=== PATIENT | female | born 1965 | race Caucasian/White ===

== ENCOUNTER 2016-09-03 07:59 | Inpatient (IN) | payer SELFPAY ==
--- NOTE | 2016-09-03 08:28 | EDPRACDOC ---
ED Hypoglycemia - General Information Chief Complaint: Generalized Weakness Information Source: Patient Mode of Arrival:: Car Home Medications: Home Medications Buspirone HCl [Buspar] 10 mg PO TID 09/03/16 Duloxetine HCl [Cymbalta] 60 mg PO DAILY 09/03/16 Metformin HCl 500 mg PO DAILY #30 tab 09/03/16 Allergies/Adverse Reactions: Allergies Allergy/AdvReac Type Severity Reaction Status Date / Time No Known Allergies Allergy Verified 09/03/16 08:08 - Other History Other History: PT WITH HYPOGLYCEMIA, ALL WEEKEND. HAS HAD DIAGNOSIS FOR 2 YEARS. TOOK GLUCOSE TABS TODAY, HASN'T NEEDED GLUCOSE TABS FOR 2 YEARS. MILD HEADACHE. STARTED CYMBALTA AND BUSPAR ABOUT 1 MONTH AGO. PT LIVES WITH MOM. 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 GROUT PUMP OPERATOR YES Medications GROUT PUMP OPERATOR (Medication/ SUGAR TABLETS-0800 Dose/Time) ED Past Medical History - History Reviewed Yes Nurses notes reviewed and agree except as marked - Patient Medical History Psychological History: Denies: Depression Systemic History: Denies: Cancer Surgical History: Denies: Hysterectomy - Social Medical History Smoking Status: Heavy tobacco smoker (5 or more cigarettes/day or daily pipe/ cigar) EDM Review of Systems - Review of Systems ROS Negative Except as Marked: Yes All systems reviewed and were negative except as marked Constitutional: No Symptoms Reported Eyes: No Symptoms Reported Mouth: No Symptoms Reported Respiratory: No Symptoms Reported - Physical Exam Constitutional: Alert (Awake), No apparent distress Oriented to: Time, Person, Place Last recorded Vital Signs: Last Vital Signs Temp 97.4 F L 09/03/16 08:01 Pulse 71 09/03/16 08:01 Resp 18 09/03/16 08:01 BP 146/92 09/03/16 08:01 Pulse Ox 100 09/03/16 08:01 Oxygen Pulse Oxygen Saturation 100 O2 Device Oxygen Flow Rate Fraction of Inspired Oxygen ( FIO2) - HEENT Head: Normal ( normocephalic) Eye Exam: Normal (PERRL, EOMI, Sclera white) Oropharynx: Normal (Pharynx:Moist without exudate,Gums-no swelling) Nose: No Symptoms Reported (septum midline) Neck: Normal (FROM, trachea at midline) - Respiratory/Cardiovascular Respiratory: Normal - CTA (BBS clear to auscultation without adventitious sounds ) Cardiovascular: Normal (RRR without murmur, gallop or rub) - GI Auscultation: Normal (NABS) Palpation: Normal (Soft,No rebound or guarding, non distended) Tenderness: Non tender Ugarte's Sign: Negative - Musculoskeletal Back: Normal (Non-Tender) Extremities: Normal (Normal tone, Pulses 2+ No cyanosis or edema, FROM) - Integumentary Skin: Normal, Warm, Dry Lymphatics: Normal (no adenopathy) - Neurologic Memory Impaired: Normal Motor Function: Normal (Normal tone, Pulses 2+ No cyanosis or edema, FROM) Cranial Nerve: Normal (CN II-X11 intact sensation, strength 5/5) Cerebellar: Normal Mood Description: Normal Perception: Normal - Results 09/03/16 08:20 09/03/16 08:20 POC Capillary Glucose 46 MG/DL (70-99) L* 09/03/16 08:04 Lab Results 09/03/16 08:04 POC Capillary Glucose 46 L* - EKG EKG #1 EKG Time: 08:44 -: Yes EKG interpreted by me Rate: bpm: 58 Mcleod: Normal Rhythm: SB Block: None Hypertrophy: None ST: Normal Comments: NORMAL EKG - Additional Information 1000 D/W DR GIRON. SHE RECOMMENDS METFORMIN 500 MG DAILY. CHANGE DIET. REMOVE MUCH SUGAR POSSIBLE. INCREASE PROTEIN IN DIET, LOW CARBOHYDRATE Decision Time to Discharge: 11:06 - Departure Yes I personally saw and evaluated the patient. Disposition: Admit IP To This Hospital Condition: Stable Final Diagnosis: Hypoglycemia Instructions: Non-diabetic Hypoglycemia (ED) Education/Counseling Given To: Patient Education/Counseling Given Regarding: Diagnosis Referrals: None,No Provider [Primary Care Provider] - 1-2 days Prescriptions: Metformin HCl 500 mg PO DAILY #30 tab Additional Instructions: CHANGE DIET. REMOVE MUCH SUGAR POSSIBLE. INCREASE PROTEIN IN DIET, LOW CARBOHYDRATE Decision to Admit Time: 11:39 Decision to admit date: 09/03/16 Decision to admit: from ED - Physician Consulted Hospitalist Time Called: 11:39 Provider Called: Kaitlin Giron Time Patient Portal Concierge Returned Call: 11:39
[2016-09-03 08:29] LABS: MPV 8.4 fL (7.4-10.4)
[2016-09-03] MEDS ORDERED: DEXTROSE 25 GM/50 ML PFS IV ONE ×2 (08:30→11:37)
[2016-09-03] MEDS ORDERED: ONDANSETRON HCL 4 MG/2 ML VIAL IV ONE (08:30)
[2016-09-03 08:45] LABS: BLOOD UREA NITROGEN 16 MG/DL (7-17); CALCIUM 9.6 MG/DL (8.4-10.2); CALCULATED OSMOLALITY 270 MOs/Kg (270-290); CHLORIDE 102 mEq/L (98-107); SODIUM LEVEL 142 mEq/L (137-146); TOTAL PROTEIN 8.9 G/DL (6.3-8.2)
[2016-09-03 08:48] LABS: ALL NEG? NO
[2016-09-03 08:53] LABS: RBC/URINE 0-2 (0-5); WBC/URINE 0-2 (0-5)
[2016-09-03 08:55] LABS: CPK (TOTAL ONLY) 33 IU/L (30-134); GLUCOSE 30 MG/DL (70-99)
[2016-09-03 08:59] LABS: ETOH-MGDL < 10 mg/dL
[2016-09-03 09:00] LABS: LEUKOCYTES/URINE NEG (NEGATIVE); NITRITE/URINE NEG (NEGATIVE); URINE OCCULT BLOOD NEG (NEG/TRACE)
[2016-09-03 09:13] LABS: MDMA* NEG (NEGATIVE); METHAMPHETAMINES NEG (NEGATIVE); OXYCODONE NEG (NEGATIVE)
[2016-09-03] MEDS ORDERED: NS 1,000 ML IV ONE ×2 (09:40→11:56)
--- NOTE | 2016-09-03 10:31 | DIRPT ---
CLINICAL DATA: Hypoglycemia EXAM: PORTABLE CHEST - 1 VIEW COMPARISON: 03/02/2012 FINDINGS: The heart size and mediastinal contours are within normal limits. Both lungs are clear. The visualized skeletal structures are unremarkable. IMPRESSION: No active disease. Electronically Signed By: Kingsley Payne M.D. On: 09/03/2016 10:28
[2016-09-03] MEDS ORDERED: BENZONATATE 100 MG PERLES PO PRN (12:08)
[2016-09-03] MEDS ORDERED: TEMAZEPAM 15 MG CAP PO PRN (12:08)
[2016-09-03] MEDS ORDERED: ONDANSETRON HCL 4 MG/2 ML VIAL IV PRN (12:08)
[2016-09-03] MEDS ORDERED: METOCLOPRAMIDE 10 MG/2 ML VIAL IV PRN (12:08)
[2016-09-03] MEDS ORDERED: ACETAMINOPHEN 650 MG SUPP PR PRN (12:08)
[2016-09-03] MEDS ORDERED: SIMETHICONE 80 MG TAB PO PRN (12:08)
[2016-09-03] MEDS ORDERED: DOCUSATE-SENNA CONCENTRATE TAB PO PRN (12:08)
[2016-09-03] MEDS ORDERED: SODIUM CHLORIDE 0.9% 3 ML FLUSH FLUSH PRN (12:08)
[2016-09-03] MEDS ORDERED: D5W/NS 1,000 ML IV SCH (13:00)
--- NOTE | 2016-09-03 13:25 | HISTPHYS ---
- Chief Complaint LOW BLOOD SUGAR - History of Present Illness Debby Guardado is a 51 year old woman who suffers with a history of depression and anxiety. She has been off medication for it for about 1 1/2 years but recently had to resume it due to some traumatic events in her life. She has had several deaths close to her, a child, a brother, a father, and is also recently . She is taking Cymbalta and Buspar for this. She has no prior history of diabetes, nor is there any known history of diabetes in her family. She has developed severe recurrent episodes of hypoglycemia, with blood sugars down to 29-35. This occurred in the past also when she was on Cymbalta. She has never taken Buspar until just a few weeks ago. The Cymbalta was also resumed just about 3 weeks ago and she again began having difficulty with low blood sugars about 1-2 weeks ago. In the past, her doctor just told her to take sugar pills to treat this. She had a serum glucose of 46 when she presented to the ED today. After one ampule of D50W, it came up to 85 , but within 2 hours it had dropped to 30 again. She was retreated, but again after a few hours had recurrent hypoglycemia, so was referred for admission. She is afebrile, has no chest pain, cough, or cold symptoms. She denies dysuria. - Medical History Cardiac History: Reports: No Significant History, Syncope (with blood sugar of 27) Respiratory History: Reports: No Significant History. Denies: Cough GI/ History: Reports: No Significant History Musculoskeletal History: Reports: No Significant History Systemic History: Denies: Cancer, Diabetes Neurological History: Reports: No Significant History. Denies: Seizures, Epilepsy Psychological History: Reports: Depression, Anxiety. Denies: Alcoholism, Substance Use Disorder - Surgical History Denies: Hysterectomy (bilateral tubal ligation) - Medictions/Allergies Allergies No Known Allergies Allergy (Verified 09/03/16 08:08) Current Medication List: Reviewed Home Medications Buspirone HCl [Buspar] 10 mg PO TID 09/03/16 Duloxetine HCl [Cymbalta] 60 mg PO DAILY 09/03/16 Metformin HCl 500 mg PO DAILY #30 tab 09/03/16 - Family History Reports: Hypertension (MGM), Cancer (MGF), Cardiac Disorders (MGM,). Denies: Diabetes - Social History Travel Outside of [place] in the Last 3 Months?: No Lives: Alone Smoking Status: Heavy tobacco smoker (5 or more cigarettes/day or daily pipe/ cigar) Social History: Denies: Alcohol Use, Substance Use Disorder - Review of Systems Constitutional: Fatigue, Weakness. negative: Chills, Fever Eyes: No Symptoms Reported, Blurred Vision Ears: No Symptoms Reported Nose: No Symptoms Reported Mouth: No Symptoms Reported Throat/Neck: No Symptoms Reported Respiratory: No Symptoms Reported. negative: Cough, Shortness of Breath, Wheezing Cardiovascular: Palpitations, Syncope. negative: Chest Pain Gastrointestinal: Nausea. negative: Vomiting, Abdominal Pain, Diarrhea, Constipation, Melena Genitourinary: No Symptoms Reported, Postmenopause Neurological: Dizziness, Headache, Weakness, Tremors, Changes in Orientation Musculoskeletal:: No Symptoms Reported, Weakness Integumentary: Other (diaphoresis) Allergic/Immunologic: No Symptoms Reported Hematologic: Anemia Endocrine: negative: Excessive Hunger, Polyuria, Diabetes Psychiatric: Anxiety, Depression. negative: Suicidal - Physical Exam Vital Signs: Initial Vitals Temperature 97.4 F L 09/03/16 08:01 Pulse Rate 71 09/03/16 08:01 Respiratory Rate 18 09/03/16 08:01 Blood Pressure 146/92 09/03/16 08:01 Pulse Oxygen Saturation 100 09/03/16 08:01 Constitutional: Alert, Well nourished, Well appearing, Other (avoids eye contact ,) Oriented to: Time, Person, Place - HEENT Head: Normal, Other (face flushed) Eye: Normal (PERRL: EOMI) Oropharynx: Membranes Dry. negative: Exudate, Red Tympanic Membrane: Normal ENT EAC: Normal TMJ: Normal Nose: No Symptoms Reported. negative: Bleeding, Congestion, Discharge, Deformity Respiratory: Normal - CTA Cardiovascular: Normal (regular rhythm and rate, mild tachycardia, hyperdynamic) , Tachycardia. negative: Diastolic murmur, Systolic murmur, Gallop/S3, Gallop/ S4 - GI Auscultation: Normal Palpation: Normal. negative: Enlarged liver, Enlarged spleen, Fluid Wave Tenderness: Non tender Ugarte's Sign: Negative Rectal Exam: Deferred - Musculoskeletal Back: Normal Extremities: Normal, Pedal Pulse (normal), Radial Pulse (normal). negative: Edema Spine: normal alignment, normal inspection - Integumentary Skin: Warm, Dry, Flushed Lymphatics: Normal - Neurologic Memory Impaired: Normal Motor Function: Normal Cranial Nerve: Normal Cerebellar: Normal Mood Description: Anxious, Flat, Other (poor eye contact) Thought: Coherent Perception: Normal - Focused CV Perfusion Exam Vital Signs: Last Vital Signs Temp 97.4 F L 09/03/16 08:01 Pulse 64 09/03/16 12:29 Resp 18 09/03/16 12:29 BP 116/65 09/03/16 12:29 Pulse Ox 99 09/03/16 12:29 - Lab Results Laboratory Tests 09/03/16 09/03/16 09/03/16 08:04 08:15 08:20 WBC Hgb Hct Plt Count Sodium 142 Potassium 3.4 L Chloride 102 Carbon Dioxide 28 Anion Gap 15 BUN 16 Creatinine 0.80 Estimated GFR (MDRD) > 60 Glucose 30 L* POC Capillary Glucose 46 L* Hemoglobin A1c 5.0 Calculated Osmolality 270 Calcium 9.6 Total Bilirubin 0.7 AST 24 ALT 22 Alkaline Phosphatase 63 Total Creatine Kinase 33 Troponin I < 0.01 Total Protein 8.9 H Albumin 5.1 H Urine Color Urine Clarity Urine pH Ur Specific [place] Urine Protein Urine Glucose (UA) Urine Ketones Urine Nitrite Urine Bilirubin Urine Urobilinogen Ur Epithelial Cells Urine Bacteria Hyaline Casts Urine Mucus U Benzodiazepines Scrn Ur THC Screen Plasma/Serum Ethyl Alc 09/03/16 09/03/16 09/03/16 08:20 08:20 08:37 WBC 10.7 Hgb 17.7 H Hct 52.8 H Plt Count 346 Sodium Potassium Chloride Carbon Dioxide Anion Gap BUN Creatinine Estimated GFR (MDRD) Glucose POC Capillary Glucose Hemoglobin A1c Calculated Osmolality Calcium Total Bilirubin AST ALT Alkaline Phosphatase Total Creatine Kinase Troponin I Total Protein Albumin Urine Color Dark yellow Urine Clarity Hazy Urine pH 5.0 Ur Specific [place] 1.030 Urine Protein Neg Urine Glucose (UA) Neg Urine Ketones Neg Urine Nitrite Neg Urine Bilirubin Neg Urine Urobilinogen 0.2 Ur Epithelial Cells 3+ Urine Bacteria Few Hyaline Casts 5-10 H Urine Mucus Large U Benzodiazepines Scrn Ur THC Screen Plasma/Serum Ethyl Alc 09/03/16 09/03/16 09/03/16 08:37 09:41 11:31 WBC Hgb Hct Plt Count Sodium Potassium Chloride Carbon Dioxide Anion Gap BUN Creatinine Estimated GFR (MDRD) Glucose POC Capillary Glucose 85 30 L* Hemoglobin A1c Calculated Osmolality Calcium Total Bilirubin AST ALT Alkaline Phosphatase Total Creatine Kinase Troponin I Total Protein Albumin Urine Color Urine Clarity Urine pH Ur Specific [place] Urine Protein Urine Glucose (UA) Urine Ketones Urine Nitrite Urine Bilirubin Urine Urobilinogen Ur Epithelial Cells Urine Bacteria Hyaline Casts Urine Mucus U Benzodiazepines Scrn *positive* H Ur THC Screen *positive* H Plasma/Serum Ethyl Alc 09/03/16 09/03/16 09/03/16 12:32 14:01 16:11 WBC Hgb Hct Plt Count Sodium Potassium Chloride Carbon Dioxide Anion Gap BUN Creatinine Estimated GFR (MDRD) Glucose POC Capillary Glucose 90 37 L* 105 H Hemoglobin A1c Calculated Osmolality Calcium Total Bilirubin AST ALT Alkaline Phosphatase Total Creatine Kinase Troponin I Total Protein Albumin Urine Color Urine Clarity Urine pH Ur Specific [place] Urine Protein Urine Glucose (UA) Urine Ketones Urine Nitrite Urine Bilirubin Urine Urobilinogen Ur Epithelial Cells Urine Bacteria Hyaline Casts Urine Mucus U Benzodiazepines Scrn Ur THC Screen Plasma/Serum Ethyl Alc - Diagnostic Findings CXR: FINDINGS: The heart size and mediastinal contours are within normal limits. Both lungs are clear. The visualized skeletal structures are unremarkable. IMPRESSION: No active disease. Electronically Signed By: Kingsley Payne M.D. On: 09/03/2016 10:28 - Assessment (1) Hypoglycemia E16.2 - HYPOGLYCEMIA, UNSPECIFIED Acute Present on Admission: Yes Severe profound hypoglycemia in the absence of diabetes, obesity, or family history of diabetes. No apparent signs of metabolic syndrome. Consider adverse drug reaction. Cymbalta is known to effect palpitations, elevated liver enzymes, syncope, seizures, blurred vision, nausea, somnolence, headaches , fatigue, diaphoresis, tremor- all of which are also signs of hypoglycemia or changes in glucose metabolism. (2) Anxiety and depression F41.9 - ANXIETY DISORDER, UNSPECIFIED; F32.9 - MAJOR DEPRESSIVE DISORDER, SINGLE EPISODE, UNSPECIFIED Acute Present on Admission: Yes Patient with history of recurrent major depression- has been treated with anti- depressants more than once. Treated twice with Cymbalta in the past 3 years and patient states she has had this problem (profound hypoglycemia) before, " but it went away." (3) Dehydration E86.0 - DEHYDRATION Acute Present on Admission: Yes Give IV fluids. (4) Hypokalemia E87.6 - HYPOKALEMIA Acute Present on Admission: Yes may be extracellular to intracellular shift- will observe & monitor for now Case Care Discussed with: Patient, Nursing Staff Total Time: 65 min Critical Care: Yes Couseling Time (>50% in counseling/coordination): Yes Code: 291
[2016-09-03] MEDS: BUSPIRONE 10 MG TAB PO SCH ×2 (15:43→20:40)
[2016-09-03] MEDS: SODIUM CHLORIDE 0.9% 3 ML FLUSH FLUSH SCH (17:51)
[2016-09-03] MEDS: DEXTROSE 25 GM/50 ML PFS IV PRN ×2 (20:39→22:10)
[2016-09-04] MEDS: DEXTROSE 25 GM/50 ML PFS IV PRN ×10 (00:08→23:10)
[2016-09-04] MEDS ORDERED: [UNRECOGNIZED DRUG - OTHER] IV SCH ×2 (02:00→15:00)
[2016-09-04] MEDS: SODIUM CHLORIDE 0.9% 3 ML FLUSH FLUSH SCH ×2 (04:51→17:07)
[2016-09-04] MEDS: BUSPIRONE 10 MG TAB PO SCH ×3 (06:08→21:07)
[2016-09-04 07:14] LABS: AUTOMATED BASOPHIL 0.7 % (0-2); AUTOMATED EOSINOPHIL 0.5 % (0-5); AUTOMATED LYMPH 28.6 % (17-44); AUTOMATED MONOCYTE 7.4 % (3-10); AUTOMATED NEUTROPHIL 62.8 % (45-76); MPV 8.4 fL (7.4-10.4)
[2016-09-04 07:32] LABS: BLOOD UREA NITROGEN 7 MG/DL (7-17); CALC CORRECTED 9.7 MG/DL (8.4-10.2); CALCIUM 8.5 MG/DL (8.4-10.2); CALCULATED OSMOLALITY 273 MOs/Kg (270-290); CHLORIDE 110 mEq/L (98-107); GLUCOSE 96 MG/DL (70-99); LDL (calc.) 49.2 MG/DL (<100); SODIUM LEVEL 143 mEq/L (137-146); TOTAL PROTEIN 5.2 G/DL (6.3-8.2); VLDL (calc.) 15.8 MG/DL (5-40)
--- NOTE | 2016-09-04 10:52 | GENMEDPROG ---
Chief Complaint: persistent hypoglycemia, no history of diabetes, possible adverse drug reaction vs insulinoma Subjective Note: Patient very symptomatic with diaphoresis, altered mental status and seizure activity during extreme hypoglycemia. Repeated episodes of hypoglycemia with CBG in 20-30's. Patient moved to ICU. Current Medication List: Reviewed Currently: Denies: Constipation, Diarrhea, Nausea and Vomiting - Physical Examination Vital Signs and I&O: Last Vital Signs Temp 98.0 F 09/04/16 09:15 Pulse 72 09/04/16 09:15 Resp 18 09/04/16 09:15 BP 107/69 09/04/16 09:15 Pulse Ox 98 09/04/16 09:15 Oxygen Pulse Oxygen Saturation 98 O2 Device Room Air Oxygen Flow Rate Fraction of Inspired Oxygen ( FIO2) Intake & Output 09/01/16 09/02/16 09/03/16 09/04/16 23:59 23:59 23:59 23:59 Intake Total 2771 600 Output Total 1500 Balance 2771 -900 Patient's weight 60.101 kg 60.872 kg General: Alert, Cooperative, Moderate distress, Weakness, Other (headache, diaphoresis, tremors, seizure) HEENT: Normal, PERRLA, EOMI, Anicteric Sclera, Mucous membr. moist/pink, Pallor Neck: Non-tender, Full range of motion, Normal Trachea alignment, Normal inspection, No Masses palpable, No Thyromegaly palpable, Tender lateral, Supple. negative: JVD Lymphatics: Normal. negative: Adenopathy, Inguinal Tenderness Respiratory: Normal - CTA, Diminished Cardiovascular: Regular rate and rhythm, Normal S1, Normal S2, Good Pedal Pulses , LE Edema (tr), Chest Non Tender GI: Normal bowel sounds, Soft, Non tender, No masses Extremities/Musculoskeletal: Normal pulses, Edema (tr), FROM Skin: Warm,Dry and Intact, No rashes, No breakdown, No significant lesion. negative: Rash, Erythema Neurological: Normal Steady Gait, Normal speech, Strength at 5/5 X4 ext, Normal tone, Cranial nerves 3-12 NL, Reflexes 2+, Drowsy Psych/Mental Status: Normal Affect, Cooperative, Anxious, Confused (at times), Disoriented (at times), Lethargic (at times) Lab/DI/Studies Reviewed: Laboratory Tests 09/03/16 09/03/16 09/04/16 08:15 08:20 06:51 WBC Hgb Hct Plt Count Neut % (Auto) Lymph % (Auto) Price % (Auto) Eos % (Auto) PT INR Sodium 143 Potassium 3.9 Chloride 110 H Carbon Dioxide 28 Anion Gap 9 BUN 7 Creatinine 0.60 Estimated GFR (MDRD) > 60 Glucose 96 Hemoglobin A1c 5.0 Insulin Level Pending C-Peptide Pending Triglycerides 79 Cholesterol 117 LDL Cholesterol, Calc 49.2 VLDL Cholesterol, Calc 15.8 HDL Cholesterol 52.0 Cholesterol/HDL Ratio 2.3 Insulin-like GF I 09/04/16 09/04/16 09/04/16 06:51 06:51 10:28 WBC 7.0 Hgb 13.4 D Hct 40.1 Plt Count 221 Neut % (Auto) 62.8 Lymph % (Auto) 28.6 Price % (Auto) 7.4 Eos % (Auto) 0.5 PT 10.3 INR 1.0 Sodium Potassium Chloride Carbon Dioxide Anion Gap BUN Creatinine Estimated GFR (MDRD) Glucose 43 L* Hemoglobin A1c Insulin Level C-Peptide Triglycerides Cholesterol LDL Cholesterol, Calc VLDL Cholesterol, Calc HDL Cholesterol Cholesterol/HDL Ratio Insulin-like GF I 09/04/16 16:43 WBC Hgb Hct Plt Count Neut % (Auto) Lymph % (Auto) Price % (Auto) Eos % (Auto) PT INR Sodium Potassium Chloride Carbon Dioxide Anion Gap BUN Creatinine Estimated GFR (MDRD) Glucose Hemoglobin A1c Insulin Level Pending C-Peptide Triglycerides Cholesterol LDL Cholesterol, Calc VLDL Cholesterol, Calc HDL Cholesterol Cholesterol/HDL Ratio Insulin-like GF I Pending - Assessment (1) Hypoglycemia Acute E16.2 - HYPOGLYCEMIA, UNSPECIFIED Comment/Plan: Severe /profound hypoglycemia in the absence of diabetes, obesity, or family history of diabetes. No apparent signs of metabolic syndrome. Consider adverse drug reaction. Cymbalta is known to effect palpitations, elevated liver enzymes, syncope, seizures, blurred vision, nausea, somnolence, headaches, fatigue, diaphoresis, tremor- all of which are also signs of hypoglycemia or changes in glucose metabolism. Have started D10 1/2 NS infusion at 125 mL/hr, given D50W per IV push as per hypoglycemia protocol several tiems already today and patient keeps having hypoglycemia. Blood cultures pending. (2) Anxiety and depression Acute F41.9 - ANXIETY DISORDER, UNSPECIFIED; F32.9 - MAJOR DEPRESSIVE DISORDER , SINGLE EPISODE, UNSPECIFIED Comment/Plan: Patient with history of recurrent major depression- has been treated with anti-depressants more than once. Treated twice with Cymbalta in the past 3 years and patient states she has had this problem (profound hypoglycemia) before, "but it went away." (3) Dehydration Acute E86.0 - DEHYDRATION Comment/Plan: Give IV fluids. (4) Hypokalemia Acute E87.6 - HYPOKALEMIA Comment/Plan: may be extracellular to intracellular shift- will observe & monitor for now
[2016-09-04] MEDS ORDERED: MetFORMIN 500 MG IMMED RELEASE TAB PO ONE (11:00)
[2016-09-04] MEDS ORDERED: NS 1,000 ML IV SCH (15:00)
[2016-09-04] MEDS ORDERED: Medication Special Instructions SCH (15:00)
[2016-09-04] MEDS ORDERED: DEXTROSE 25 GM/50 ML PFS IV ONE (15:54)
[2016-09-04] MEDS: [UNRECOGNIZED DRUG - OTHER] IV SCH (18:05)
[2016-09-05] MEDS: [UNRECOGNIZED DRUG - OTHER] IV SCH ×4 (00:37→21:23)
[2016-09-05] MEDS: DEXTROSE 25 GM/50 ML PFS IV PRN ×16 (00:38→22:55)
[2016-09-05] MEDS: SODIUM CHLORIDE 0.9% 3 ML FLUSH FLUSH SCH ×2 (06:11→15:43)
[2016-09-05] MEDS: BUSPIRONE 10 MG TAB PO SCH ×3 (06:16→20:05)
[2016-09-05] MEDS ORDERED: Vaccine Screening Complete SCH (10:00)
--- NOTE | 2016-09-05 11:43 | GENMEDPROG ---
Chief Complaint: PERSISTENT HYPOGLYCEMIA, ANXIETY, Currently: Denies: Constipation, Diarrhea, Nausea and Vomiting - Physical Examination Vital Signs and I&O: Last Vital Signs Temp 97.5 F 09/05/16 07:00 Pulse 71 09/05/16 11:00 Resp 18 09/05/16 03:00 BP 141/91 09/05/16 11:00 Pulse Ox 97 09/05/16 11:00 Oxygen Pulse Oxygen Saturation 97 O2 Device Room Air Oxygen Flow Rate Fraction of Inspired Oxygen ( FIO2) Intake & Output 09/02/16 09/03/16 09/04/16 09/05/16 23:59 23:59 23:59 23:59 Intake Total 2771 891 2931 Output Total 3400 Balance 2771 -6000 2931 Patient's weight 60.101 kg 60.872 kg General: Alert, Cooperative, Moderate distress, Weakness, Other (headache, diaphoresis, tremors, seizure) HEENT: Normal, PERRLA, EOMI, Anicteric Sclera, Mucous membr. moist/pink, Pallor Neck: Non-tender, Full range of motion, Normal Trachea alignment, Normal inspection, No Masses palpable, No Thyromegaly palpable, Tender lateral, Supple. negative: JVD Lymphatics: Normal. negative: Adenopathy, Inguinal Tenderness Respiratory: Normal - CTA, Diminished Cardiovascular: Regular rate and rhythm, Normal S1, Normal S2, Good Pedal Pulses , LE Edema (tr), Chest Non Tender GI: Normal bowel sounds, Soft, Non tender, No masses Extremities/Musculoskeletal: Normal pulses, Edema (tr), FROM Skin: Warm,Dry and Intact, No rashes, No breakdown, No significant lesion. negative: Rash, Erythema Neurological: Normal Steady Gait, Normal speech, Strength at 5/5 X4 ext, Normal tone, Cranial nerves 3-12 NL, Reflexes 2+, Drowsy Psych/Mental Status: Normal Affect, Cooperative, Anxious, Confused (at times), Disoriented (at times), Lethargic (at times) - Assessment (1) Hypoglycemia Resolved E16.2 - HYPOGLYCEMIA, UNSPECIFIED Comment/Plan: Severe /profound hypoglycemia in the absence of diabetes, obesity, or family history of diabetes. No apparent signs of metabolic syndrome. Need to consider insulinoma. Consider adverse drug reaction. Cymbalta is known to effect palpitations, elevated liver enzymes, syncope, seizures, blurred vision, nausea , somnolence, headaches, fatigue, diaphoresis, tremor- all of which are also signs of hypoglycemia or changes in glucose metabolism. Have started D10 1/2 NS infusion at 125 mL/hr, given D50W per IV push as per hypoglycemia protocol several times already today and patient keeps having hypoglycemia. Blood cultures pending. (2) Anxiety and depression Acute F41.9 - ANXIETY DISORDER, UNSPECIFIED; F32.9 - MAJOR DEPRESSIVE DISORDER , SINGLE EPISODE, UNSPECIFIED Comment/Plan: Patient with history of recurrent major depression- has been treated with anti-depressants more than once. Treated twice with Cymbalta in the past 3 years and patient states she has had this problem (profound hypoglycemia) before, "but it went away." (3) Dehydration Acute E86.0 - DEHYDRATION Comment/Plan: Give IV fluids. (4) Hypokalemia Acute E87.6 - HYPOKALEMIA Comment/Plan: may be extracellular to intracellular shift- will observe & monitor for now Case Care Discussed with: Patient, Nursing Staff Education/Counseling Given To: Patient, Family Member Education/Counseling Given Regarding: Diagnosis, Treatment, Prognosis Critical Care: Yes Couseling Time (>50% in counseling/coordination): Yes Code: 291
[2016-09-06] MEDS: DEXTROSE 25 GM/50 ML PFS IV PRN ×3 (00:11→17:03)
[2016-09-06] MEDS: [UNRECOGNIZED DRUG - OTHER] IV SCH ×3 (04:03→19:53)
[2016-09-06] MEDS: BUSPIRONE 10 MG TAB PO SCH ×3 (05:10→20:04)
[2016-09-06] MEDS: SODIUM CHLORIDE 0.9% 3 ML FLUSH FLUSH SCH ×2 (05:10→15:49)
[2016-09-06 07:09] LABS: BLOOD UREA NITROGEN 7 MG/DL (7-17); CALCIUM 8.5 MG/DL (8.4-10.2); CALCULATED OSMOLALITY 268 MOs/Kg (270-290); CHLORIDE 106 mEq/L (98-107); CRP-QUANTITATIVE 6.3 mg/L (<10.0); GLUCOSE 76 MG/DL (70-99); SODIUM LEVEL 141 mEq/L (137-146)
[2016-09-06] MEDS ORDERED: PNEUMOCOCCAL 0.5 ML VIAL IM ONE (08:00)
[2016-09-06] MEDS ORDERED: FLU VACCINE (Afluria) 0.5 ML DOSE IM ONE (08:00)
--- NOTE | 2016-09-06 09:37 | GENMEDPROG ---
Chief Complaint: Hypoglycemia, PERSISTENT- Lab tests consistent w/ neuroendocrine tumor Current Medication List: Reviewed Currently: Denies: Constipation, Diarrhea, Nausea and Vomiting - Physical Examination Vital Signs and I&O: Last Vital Signs Temp 98.3 F 09/06/16 07:00 Pulse 74 09/06/16 08:00 Resp 18 09/06/16 08:00 BP 121/89 09/06/16 08:00 Pulse Ox 100 09/06/16 08:00 Oxygen Pulse Oxygen Saturation 100 O2 Device Room Air Oxygen Flow Rate Fraction of Inspired Oxygen ( FIO2) Intake & Output 09/03/16 09/04/16 09/05/16 09/06/16 23:59 23:59 23:59 23:59 Intake Total 2774 501 4615 1067 Output Total 1680 Balance 2771 -9312 4615 1067 Patient's weight 60.101 kg 60.872 kg 62.284 kg General: Alert, Cooperative, Moderate distress, Weakness, Other (headache, diaphoresis, tremors, seizure) HEENT: Normal, PERRLA, EOMI, Anicteric Sclera, Mucous membr. moist/pink, Pallor Neck: Non-tender, Full range of motion, Normal Trachea alignment, Normal inspection, No Masses palpable, No Thyromegaly palpable, Tender lateral, Supple. negative: JVD Lymphatics: Normal. negative: Adenopathy, Inguinal Tenderness Respiratory: Normal - CTA, Diminished Cardiovascular: Regular rate and rhythm, Normal S1, Normal S2, Good Pedal Pulses , LE Edema (tr), Chest Non Tender GI: Normal bowel sounds, Soft, Non tender, No masses Extremities/Musculoskeletal: Normal pulses, Edema (tr), FROM Skin: Warm,Dry and Intact, No rashes, No breakdown, No significant lesion. negative: Rash, Erythema Neurological: Normal Steady Gait, Normal speech, Strength at 5/5 X4 ext, Normal tone, Cranial nerves 3-12 NL, Reflexes 2+, Drowsy Psych/Mental Status: Normal Affect, Cooperative, Anxious, Confused (at times), Disoriented (at times), Lethargic (at times) Lab/DI/Studies Reviewed: Laboratory Tests 09/03/16 09/03/16 09/04/16 08:20 08:20 06:51 Glucose 30 L* 96 Insulin Level 53.4 H C-Peptide 9.1 H C-Reactive Prot, Quant TSH FSH Luteinizing Hormone Insulin-like GF I 09/04/16 09/04/16 09/05/16 10:28 16:43 12:03 Glucose 43 L* Insulin Level 65.2 H C-Peptide C-Reactive Prot, Quant TSH 1.14 FSH Luteinizing Hormone Insulin-like GF I 226 H 09/05/16 09/06/16 12:03 05:15 Glucose Insulin Level C-Peptide C-Reactive Prot, Quant 6.3 TSH FSH 35.2 Luteinizing Hormone 26.6 Insulin-like GF I - Assessment (1) Hypoglycemia Resolved E16.2 - HYPOGLYCEMIA, UNSPECIFIED Comment/Plan: Severe /profound hypoglycemia in the absence of diabetes, obesity, or family history of diabetes. No apparent signs of metabolic syndrome. Need to consider insulinoma. Have started D10 1/2 NS infusion at 125 mL/hr, given D50W per IV push as per hypoglycemia protocol several times already today and patient keeps having hypoglycemia. Fasting blood tests from ED prior to giving dextrose reveal elevated insulin level and elevated C-peptide with low serum glucoses. Patient sent for CT of abdomen with pancreatic protocol to search for insulinoma. (2) Anxiety and depression Acute F41.9 - ANXIETY DISORDER, UNSPECIFIED; F32.9 - MAJOR DEPRESSIVE DISORDER , SINGLE EPISODE, UNSPECIFIED Comment/Plan: Patient with history of recurrent major depression- has been treated with anti-depressants more than once. Treated twice with Cymbalta in the past 3 years and patient states she has had this problem (profound hypoglycemia) before, "but it went away." (3) Dehydration Acute E86.0 - DEHYDRATION Comment/Plan: Give IV fluids. (4) Hypokalemia Acute E87.6 - HYPOKALEMIA Comment/Plan: may be extracellular to intracellular shift- will observe & monitor for now
[2016-09-06] MEDS ORDERED: DIATRIZOATE MEGLMINE/SODIUM 30 ML BOTTLE PO ONE ×2 (10:20→10:46)
[2016-09-06] MEDS ORDERED: Vaccine Screening Complete SCH (11:00)
[2016-09-06] MEDS ORDERED: Pharmacy Review for Metformin - IV Contrast Given SCH ×4 (11:00)
[2016-09-06] MEDS: ACETAMINOPHEN 325 MG/TAB TABLET PO PRN (14:38)
--- NOTE | 2016-09-06 17:55 | HIMOPRPT ---
PROCEDURE: DATE OF PROCEDURE: 09/06/16 PREOPERATIVE DIAGNOSES: Poor Venous Access POSTOPERATIVE DIAGNOSES: Poor Venous Access PROCEDURES: Central Line Placement using ultrasound Guidance (Images Obtained) SURGEON: Efrain Can MD ANESTHESIA: Local COMPLICATIONS: None. ESTIMATED BLOOD LOSS: Minimal OPERATIVE NOTE: Patient was placed supine on the hospital bed. Patient was then prepped and draped in the usual fashion. Using ultrasound guidance I was able to visualize the right internal jugular vein. The skin and subcutaneous tissue was anesthetized using local anesthetic. Large-bore needle was placed directly into the vein using ultrasound guidance. Guidewire was passed through the needle and the needle was removed. We then placed the dilator over the guidewire and then removed the dilator. Central Line was passed over the guidewire and the guidewire was removed. This left the central line in place. All 3 ports were easily aspirated and then flushed with saline. Central line was secured with silk sutures and then a dressing was applied.
--- NOTE | 2016-09-06 17:59 | PCM.SURGCO ---
Consultation Date: 09/06/16 Consult Reason: Poor Venous Access - History of Present Illness 51YO Female with persistent hypoglycemia. Currently in need of CT to rule out insulinoma. She has very poor venous access. Asked to see patient about placing central line. Chief Complaint: LOW BLOOD SUGAR - Past Medical and Surgical History Cardiac History: Reports: No Significant History Respiratory History: Reports: No Significant History GI/ History: Reports: No Significant History Systemic History: Reports: No Significant History Musculoskeletal History: Reports: No Significant History Psychological History: Reports: No Significant History. Denies: Substance Use Disorder Neurological History: Reports: No Significant History Past Surgical History: Reports: No Significant History Allergies duloxetine [From Cymbalta] Allergy (Verified 09/04/16 12:59) See Comments Severe recurrent hypoglycemia requiring inpatient admission 09/03/16; started 1- 2 weeks after restarting Cymbalta. Has had hypoglycemia episodes with prior Cymbalta therapy but not as severe. Home Medications Buspirone HCl [Buspar] 10 mg PO TID 09/03/16 Duloxetine HCl [Cymbalta] 60 mg PO DAILY 09/03/16 Metformin HCl 500 mg PO DAILY #30 tab 09/03/16 - Social History Social History: Denies: Substance Use Disorder - Family History Reports: No Significant History, Hypertension (MGM), Cancer (MGF), Cardiac Disorders (MGM,). Denies: Diabetes - Review of Systems Constitutional: Fatigue. negative: Chills, Fever Eyes: negative: Blurred Vision, Double Vision Ears: negative: Hearing Loss, Tinnitus Throat/Neck: negative: Swelling, Masses, Hoarseness Respiratory: negative: Cough, Hemoptysis, Shortness of Breath, Wheezing, Sputum Cardiovascular: negative: Chest Pain, Orthopnea, Palpitations Gastrointestinal: Nausea. negative: Vomiting, Abdominal Pain, Dysphasia Genitourinary: negative: Dysuria, Hematuria Neurological: negative: Headache, Seizure Musculoskeletal:: negative: Joint Pain, Muscle Pain Integumentary: negative: Itching, Rash, Wound Allergic/Immunologic: negative: Hives, Itching Hematologic: negative: Easy Bruising, Easy Bleeding Psychiatric: Anxiety, Depression - Physical Exam Vital Signs: Initial Vitals Temperature 97.4 F L 09/03/16 08:01 Pulse Rate 71 09/03/16 08:01 Respiratory Rate 18 09/03/16 08:01 Blood Pressure 146/92 09/03/16 08:01 Pulse Oxygen Saturation 100 09/03/16 08:01 Constitutional: No apparent distress, Alert, Agitated Oriented to: Time, Person, Place - HEENT Head: Normal. negative: Deformity Eye: negative: Edema, Pale Conjunctiva, Scleral Icterus Respiratory: negative: Retractions, Rhonchi, Stridor Cardiovascular: Normal. negative: Irregular - Musculoskeletal Back: negative: Ecchymosis, Laceration, CVA Tenderness Extremities: negative: Clubbing, Cyanosis, Edema - Integumentary Skin: Warm, Dry. negative: Diaphoretic Lymphatics: negative: Adenopathy - Lab Results 09/04/16 06:51 09/06/16 05:15 - Assessment/Plan (1) Poor venous access I87.8 - OTHER SPECIFIED DISORDERS OF VEINS Acute Present on Admission: Yes (2) Anxiety and depression F41.9 - ANXIETY DISORDER, UNSPECIFIED; F32.9 - MAJOR DEPRESSIVE DISORDER, SINGLE EPISODE, UNSPECIFIED Acute (3) Dehydration E86.0 - DEHYDRATION Acute (4) Hypoglycemia E16.2 - HYPOGLYCEMIA, UNSPECIFIED Resolved Plan: Will go ahead and place central line. Patient agreeable. All questions answered.
--- NOTE | 2016-09-06 19:01 | DIRPT ---
CLINICAL DATA: Central line placement. EXAM: PORTABLE CHEST 1 VIEW COMPARISON: 09/03/2016 FINDINGS: Right central venous catheter has been placed with tip at the mid SVC level. Normal heart size and pulmonary vascularity. No focal airspace disease or consolidation in the lungs. No blunting of costophrenic angles. No pneumothorax. Mediastinal contours appear intact. IMPRESSION: No active disease. Right central venous catheter with tip over the mid SVC region. No acute complication suggested. Electronically Signed By: Dayton Diana M.D. On: 09/06/2016 18:58
[2016-09-07] MEDS: ACETAMINOPHEN 325 MG/TAB TABLET PO PRN ×2 (00:23→07:38)
[2016-09-07] MEDS: [UNRECOGNIZED DRUG - OTHER] IV SCH ×5 (02:36→17:53)
[2016-09-07] MEDS: BUSPIRONE 10 MG TAB PO SCH ×3 (05:00→20:40)
[2016-09-07] MEDS: SODIUM CHLORIDE 0.9% 3 ML FLUSH FLUSH SCH ×2 (05:00→17:54)
[2016-09-07] MEDS ORDERED: PNEUMOCOCCAL 0.5 ML VIAL IM ONE (08:00)
[2016-09-07] MEDS ORDERED: FLU VACCINE (Afluria) 0.5 ML DOSE IM ONE (08:00)
--- NOTE | 2016-09-07 08:06 | DIRPT ---
CLINICAL DATA: Hypoglycemia. Evaluate for pancreatic neuroendocrine tumor. EXAM: CT ABDOMEN WITHOUT AND WITH CONTRAST TECHNIQUE: Multidetector CT imaging of the abdomen was performed following the standard protocol before and following the bolus administration of intravenous contrast. CONTRAST: 100 mL Isovue 370 COMPARISON: None. FINDINGS: Lower chest: No acute findings. Hepatobiliary: No masses or other significant abnormality. Gallbladder is unremarkable. Pancreas: Normal appearance. No hypervascular or hypovascular masses identified. No evidence of pancreatic ductal dilatation. No evidence of peripancreatic inflammatory changes or fluid collections. Spleen: Within normal limits in size and appearance. Adrenals/Urinary Tract: No adrenal or renal masses identified. No other retroperitoneal masses seen. No evidence of hydronephrosis. Stomach/Bowel: No evidence of obstruction, inflammatory process, or abnormal fluid collections. Vascular/Lymphatic: No pathologically enlarged lymph nodes. No evidence of abdominal aortic aneurysm. Other: None. Musculoskeletal: No suspicious bone lesions identified. IMPRESSION: Negative. No pancreatic or other retroperitoneal mass identified. Electronically Signed By: Jase Aly M.D. On: 09/07/2016 08:04
--- NOTE | 2016-09-07 16:24 | GENMEDPROG ---
Chief Complaint: PERSISTENT HYPOGLYCEMIA Subjective Note: Patient is gradually improving. Fewer low blood sugars, none in the 20-30 range and less in the 50-60 range now. Currently: Denies: Constipation, Diarrhea, Nausea and Vomiting - Physical Examination Vital Signs and I&O: Last Vital Signs Temp 98.1 F 09/07/16 14:00 Pulse 83 09/07/16 15:00 Resp 18 09/07/16 14:00 BP 127/82 09/07/16 15:00 Pulse Ox 98 09/07/16 15:00 Oxygen Pulse Oxygen Saturation 98 O2 Device Room Air Oxygen Flow Rate Fraction of Inspired Oxygen ( FIO2) Intake & Output 09/04/16 09/05/16 09/06/16 09/07/16 23:59 23:59 23:59 23:59 Intake Total 891 4615 4610 2635 Output Total 3400 Balance -2509 4615 4610 2635 Patient's weight 60.872 kg 62.284 kg 62.284 kg General: Alert, Cooperative, Moderate distress, Weakness, Other (headache, diaphoresis, tremors, seizure) HEENT: Normal, PERRLA, EOMI, Anicteric Sclera, Mucous membr. moist/pink, Pallor Neck: Non-tender, Full range of motion, Normal Trachea alignment, Normal inspection, No Masses palpable, No Thyromegaly palpable, Tender lateral, Supple. negative: JVD Lymphatics: Normal. negative: Adenopathy, Inguinal Tenderness Respiratory: Normal - CTA, Diminished Cardiovascular: Regular rate and rhythm, Normal S1, Normal S2, Good Pedal Pulses , LE Edema (tr), Chest Non Tender GI: Normal bowel sounds, Soft, Non tender, No masses Extremities/Musculoskeletal: Normal pulses, Edema (tr), FROM Skin: Warm,Dry and Intact, No rashes, No breakdown, No significant lesion. negative: Rash, Erythema Neurological: Normal Steady Gait, Normal speech, Strength at 5/5 X4 ext, Normal tone, Cranial nerves 3-12 NL, Reflexes 2+, Drowsy Psych/Mental Status: Normal Affect, Cooperative, Anxious, Confused (at times), Disoriented (at times), Lethargic (at times) - Assessment (1) Hypoglycemia Resolved E16.2 - HYPOGLYCEMIA, UNSPECIFIED Comment/Plan: Severe /profound hypoglycemia in the absence of diabetes, obesity, or family history of diabetes. Fewer low blood sugars, none in the 20-30 range and less in the 50- 60 range now. Have started D10 1/2 NS infusion at 125 mL/hr, will decrease to 80 mL/hr. Fasting blood tests from ED prior to giving dextrose reveal elevated insulin level and elevated C-peptide with low serum glucoses. Patient sent for CT of abdomen with pancreatic protocol to search for insulinoma. CT of abdomen is normal. Beta hydroxybutarate was normal =0.3 and pro-insulin level was elevated at 28.8 (but drawn after on D10NS). (2) Anxiety and depression Acute F41.9 - ANXIETY DISORDER, UNSPECIFIED; F32.9 - MAJOR DEPRESSIVE DISORDER , SINGLE EPISODE, UNSPECIFIED Comment/Plan: Patient with history of recurrent major depression- has been treated with anti-depressants more than once. Treated twice with Cymbalta in the past 3 years and patient states she has had this problem (profound hypoglycemia) before, "but it went away." (3) Dehydration Acute E86.0 - DEHYDRATION Comment/Plan: Give IV fluids. (4) Hypokalemia Acute E87.6 - HYPOKALEMIA Comment/Plan: may be extracellular to intracellular shift- will observe & monitor for now
[2016-09-07] MEDS: PEG-ELECTROLYTE 17 GM PACK PO SCH (17:53)
[2016-09-08] MEDS: [UNRECOGNIZED DRUG - OTHER] IV SCH (04:01)
[2016-09-08] MEDS: ACETAMINOPHEN 325 MG/TAB TABLET PO PRN ×2 (04:02→22:29)
[2016-09-08] MEDS: BUSPIRONE 10 MG TAB PO SCH ×3 (05:41→20:52)
[2016-09-08] MEDS: SODIUM CHLORIDE 0.9% 3 ML FLUSH FLUSH SCH ×2 (05:45→18:13)
[2016-09-08] MEDS ORDERED: PNEUMOCOCCAL 0.5 ML VIAL IM ONE (08:00)
[2016-09-08] MEDS ORDERED: FLU VACCINE (Afluria) 0.5 ML DOSE IM ONE (08:00)
--- NOTE | 2016-09-08 09:48 | GENMEDPROG ---
Chief Complaint: Feels better. Blood sugars more stable on D10 Notes Reviewed: Yes Events from last night noted and discussed with Clinical Staff Current Medication List: Reviewed Currently: Denies: Cough, Wheezing, RESTREPO, SOB, Constipation, Diarrhea, Nausea and Vomiting - Physical Examination Vital Signs and I&O: Last Vital Signs Temp 97.7 F 09/08/16 09:00 Pulse 82 09/08/16 09:00 Resp 19 09/08/16 09:00 BP 136/90 09/08/16 09:00 Pulse Ox 98 09/08/16 09:00 Oxygen Pulse Oxygen Saturation 98 O2 Device Room Air Oxygen Flow Rate Fraction of Inspired Oxygen ( FIO2) Intake & Output 09/05/16 09/06/16 09/07/16 09/08/16 23:59 23:59 23:59 23:59 Intake Total 4615 4610 3523 739 Balance 4615 4610 3523 739 Patient's weight 62.284 kg 62.284 kg 64.013 kg General: Alert, Oriented x3, Cooperative, No acute distress HEENT: Normal, PERRLA, EOMI, Anicteric Sclera, Mucous membr. moist/pink Neck: Non-tender, Full range of motion, Normal Trachea alignment, Normal inspection, No Masses palpable, No Thyromegaly palpable, Tender lateral, Supple. negative: JVD Lymphatics: Normal. negative: Adenopathy, Inguinal Tenderness Respiratory: Normal - CTA, Diminished Cardiovascular: Regular rate and rhythm, Normal S1, Normal S2, Good Pedal Pulses , LE Edema (tr), Chest Non Tender GI: Normal bowel sounds, Soft, Non tender, No masses Extremities/Musculoskeletal: Normal pulses, Edema (tr), FROM Skin: Warm,Dry and Intact, No rashes, No breakdown, No significant lesion. negative: Rash, Erythema Neurological: Normal Steady Gait, Normal speech, Strength at 5/5 X4 ext, Normal tone, Cranial nerves 3-12 NL, Reflexes 2+, Drowsy Psych/Mental Status: Normal Affect, Cooperative, Anxious, Confused (at times), Disoriented (at times), Lethargic (at times) Lab/DI/Studies Reviewed: Laboratory Results - last 24 hr 09/07/16 09/07/16 09/08/16 19:26 23:57 05:10 POC Capillary Glucose 106 H 126 H 126 H 01/09/08/16 09/08/16 12:06 13:09 14:11 POC Capillary Glucose 62 L 73 71 09/08/16 17:58 POC Capillary Glucose 61 L - Assessment (1) Hypoglycemia Resolved E16.2 - HYPOGLYCEMIA, UNSPECIFIED Comment/Plan: Blood sugars have been stable well controlled on D10. Will try to discontinue and monitor for recurrent hypoglycemia. Possibly related to Cymbalta. CT of abdomen pancreatic protocol was negative for insulinoma. Recheck C-peptide and insulin level (2) Anxiety and depression Acute F41.9 - ANXIETY DISORDER, UNSPECIFIED; F32.9 - MAJOR DEPRESSIVE DISORDER , SINGLE EPISODE, UNSPECIFIED Comment/Plan: Hypoglycemia seems to occur with Cymbalta. Holding this medication. Likely will need to try different medication (3) Dehydration Acute E86.0 - DEHYDRATION Comment/Plan: IV fluids and supportive care (4) Hypokalemia Acute E87.6 - HYPOKALEMIA Comment/Plan: Replete as needed. Case Care Discussed with: Patient, Consultants, Family (Discussed with patient' s son), Resource Management, File Keeper
[2016-09-08] MEDS: PEG-ELECTROLYTE 17 GM PACK PO SCH ×2 (11:55→18:12)
[2016-09-08] MEDS: DEXTROSE 25 GM/50 ML PFS IV PRN (18:13)
[2016-09-09 04:38] LABS: AUTOMATED BASOPHIL 0.7 % (0-2); AUTOMATED EOSINOPHIL 2.1 % (0-5); AUTOMATED LYMPH 26.6 % (17-44); AUTOMATED MONOCYTE 8.6 % (3-10); MPV 9.2 fL (7.4-10.4)
[2016-09-09 04:49] LABS: BLOOD UREA NITROGEN 15 MG/DL (7-17); CALCIUM 8.7 MG/DL (8.4-10.2); CALCULATED OSMOLALITY 266 MOs/Kg (270-290); CHLORIDE 102 mEq/L (98-107); GLUCOSE 78 MG/DL (70-99); SODIUM LEVEL 138 mEq/L (137-146)
[2016-09-09] MEDS: BUSPIRONE 10 MG TAB PO SCH ×3 (05:37→20:16)
[2016-09-09] MEDS: SODIUM CHLORIDE 0.9% 3 ML FLUSH FLUSH SCH ×2 (05:37→17:52)
--- NOTE | 2016-09-09 07:31 | GENMEDPROG ---
Chief Complaint: Feels well. Blood sugars more stable though did drop to 69. Eating ok, drinking ok. Notes Reviewed: Yes Events from last night noted and discussed with Clinical Staff Current Medication List: Reviewed Currently: Denies: Cough, Wheezing, RESTREPO, SOB, Constipation, Diarrhea, Nausea and Vomiting - Physical Examination Vital Signs and I&O: Last Vital Signs Temp 98.2 F 09/09/16 06:00 Pulse 69 09/09/16 06:00 Resp 20 09/09/16 06:00 BP 119/73 09/09/16 06:00 Pulse Ox 98 09/09/16 06:00 Oxygen Pulse Oxygen Saturation 98 O2 Device Room Air Oxygen Flow Rate Fraction of Inspired Oxygen ( FIO2) Intake & Output 09/06/16 09/07/16 09/08/16 09/09/16 23:59 23:59 23:59 23:59 Intake Total 4610 3523 1815 240 Balance 4610 3523 1815 240 Patient's weight 62.284 kg 62.284 kg 64.013 kg 64.013 kg General: Alert, Oriented x3, Cooperative, No acute distress HEENT: Normal, PERRLA, EOMI, Anicteric Sclera, Mucous membr. moist/pink Neck: Non-tender, Full range of motion, Normal Trachea alignment, Normal inspection, No Masses palpable, No Thyromegaly palpable, Tender lateral, Supple. negative: JVD Lymphatics: Normal. negative: Adenopathy, Inguinal Tenderness Respiratory: Normal - CTA, Diminished Cardiovascular: Regular rate and rhythm, Normal S1, Normal S2, Good Pedal Pulses , LE Edema (tr), Chest Non Tender GI: Normal bowel sounds, Soft, Non tender, No masses Extremities/Musculoskeletal: Normal pulses, Edema (tr), FROM Skin: Warm,Dry and Intact, No rashes, No breakdown, No significant lesion. negative: Rash, Erythema Neurological: Normal Steady Gait, Normal speech, Strength at 5/5 X4 ext, Normal tone, Cranial nerves 3-12 NL, Reflexes 2+, Drowsy Psych/Mental Status: Normal Affect, Cooperative, Anxious, Confused (at times), Disoriented (at times), Lethargic (at times) Lab/DI/Studies Reviewed: Laboratory Results - last 24 hr 09/08/16 09/08/16 09/08/16 12:06 13:09 14:11 WBC RBC Hgb Hct MCV MCH MCHC RDW Plt Count MPV Neut % (Auto) Lymph % (Auto) [place] % (Auto) Eos % (Auto) Baso % (Auto) Absolute Neuts (auto) Absolute Lymphs (auto) Sodium Potassium Chloride Carbon Dioxide Anion Gap BUN Creatinine Estimated GFR (MDRD) Glucose POC Capillary Glucose 62 L 73 71 Calculated Osmolality Calcium 09/08/16 09/08/16 09/08/16 17:58 19:56 22:30 WBC RBC Hgb Hct MCV MCH MCHC RDW Plt Count MPV Neut % (Auto) Lymph % (Auto) [place] % (Auto) Eos % (Auto) Baso % (Auto) Absolute Neuts (auto) Absolute Lymphs (auto) Sodium Potassium Chloride Carbon Dioxide Anion Gap BUN Creatinine Estimated GFR (MDRD) Glucose POC Capillary Glucose 61 L 75 75 Calculated Osmolality Calcium 09/09/16 09/09/16 09/09/16 00:50 02:44 03:55 WBC RBC Hgb Hct MCV MCH MCHC RDW Plt Count MPV Neut % (Auto) Lymph % (Auto) [place] % (Auto) Eos % (Auto) Baso % (Auto) Absolute Neuts (auto) Absolute Lymphs (auto) Sodium 138 Potassium 4.4 Chloride 102 Carbon Dioxide 30 Anion Gap 10 BUN 15 Creatinine 0.60 Estimated GFR (MDRD) > 60 Glucose 78 POC Capillary Glucose 71 80 Calculated Osmolality 266 L Calcium 8.7 09/09/16 09/09/16 09/09/16 03:55 03:58 06:55 WBC 9.6 RBC 4.22 Hgb 13.7 Hct 40.9 MCV 97 MCH 32.4 H MCHC 33.4 RDW 14.0 Plt Count 217 MPV 9.2 Neut % (Auto) 62.0 Lymph % (Auto) 26.6 [place] % (Auto) 8.6 Eos % (Auto) 2.1 Baso % (Auto) 0.7 Absolute Neuts (auto) 5.95 Absolute Lymphs (auto) 2.50 Sodium Potassium Chloride Carbon Dioxide Anion Gap BUN Creatinine Estimated GFR (MDRD) Glucose POC Capillary Glucose 82 69 L Calculated Osmolality Calcium 09/09/16 07:48 WBC RBC Hgb Hct MCV MCH MCHC RDW Plt Count MPV Neut % (Auto) Lymph % (Auto) [place] % (Auto) Eos % (Auto) Baso % (Auto) Absolute Neuts (auto) Absolute Lymphs (auto) Sodium Potassium Chloride Carbon Dioxide Anion Gap BUN Creatinine Estimated GFR (MDRD) Glucose POC Capillary Glucose 111 H Calculated Osmolality Calcium - Assessment (1) Hypoglycemia Resolved E16.2 - HYPOGLYCEMIA, UNSPECIFIED Comment/Plan: Blood sugars relatively stable off of D10. Continue to hold Cymbalta. Transfer out of ICU. Continue frequent Accu-Cheks. Continue supportive care and monitor. Currently feel that hypoglycemia is likely related to Cymbalta (2) Anxiety and depression Acute F41.9 - ANXIETY DISORDER, UNSPECIFIED; F32.9 - MAJOR DEPRESSIVE DISORDER , SINGLE EPISODE, UNSPECIFIED Comment/Plan: Hypoglycemia seems to occur with Cymbalta. Holding this medication. Likely will need to try different medication (3) Dehydration Acute E86.0 - DEHYDRATION Comment/Plan: IV fluids and supportive care (4) Hypokalemia Acute E87.6 - HYPOKALEMIA Comment/Plan: Replete as needed. Case Care Discussed with: Patient, Nursing Staff, Physical Therapy, Resource Management, Respiratory Therapy, Director Of Market Intelligence
[2016-09-09] MEDS: PEG-ELECTROLYTE 17 GM PACK PO SCH ×2 (13:26→17:52)
[2016-09-10] MEDS: DEXTROSE 25 GM/50 ML PFS IV PRN (00:17)
[2016-09-10 04:14] VITALS: BP 98/62; PULSE 67; TEMP 98.5
[2016-09-10 04:15] VITALS: BMI 24.9
[2016-09-10] MEDS ORDERED: SODIUM CHLORIDE 0.9% 5 ML FLUSH FLUSH PRN (04:38)
[2016-09-10] MEDS: SODIUM CHLORIDE 0.9% 3 ML FLUSH FLUSH SCH (04:48)
[2016-09-10] MEDS: BUSPIRONE 10 MG TAB PO SCH (04:48)
[2016-09-10 05:21] LABS: BLOOD UREA NITROGEN 17 MG/DL (7-17); CALCIUM 8.7 MG/DL (8.4-10.2); CALCULATED OSMOLALITY 268 MOs/Kg (270-290); CHLORIDE 103 mEq/L (98-107); GLUCOSE 92 MG/DL (70-99); SODIUM LEVEL 138 mEq/L (137-146)
[2016-09-10] MEDS ORDERED: SODIUM CHLORIDE 0.9% 5 ML FLUSH FLUSH SCH (06:00)
--- NOTE | 2016-09-10 11:10 | PCM.DCS92 ---
- Final/Secondary Discharge Diagnosis (1) Hypoglycemia Resolved E16.2 - HYPOGLYCEMIA, UNSPECIFIED Present on Admission: Yes Comment: Blood sugars relatively stable for 48 hours off of D10 and Cymbalta. Appears stable for discharge home. She says this is the 2nd time this has happened with cymbalta. She states she has not had this problem with other antidepressants. Will try zoloft at low dose and see if she can tolerate. She will check her sugars frequently at home to monitor for hypoglycemia. CT of abd/ pelvis pancreatic protocol revealed no suspicious lesions (2) Anxiety and depression Acute F41.9 - ANXIETY DISORDER, UNSPECIFIED; F32.9 - MAJOR DEPRESSIVE DISORDER , SINGLE EPISODE, UNSPECIFIED Present on Admission: Yes Comment: Hypoglycemia seems to occur with Cymbalta. Holding this medication. Likely will need to try different medication (3) Dehydration Acute E86.0 - DEHYDRATION Present on Admission: Yes Comment: IV fluids and supportive care (4) Hypokalemia Acute E87.6 - HYPOKALEMIA Present on Admission: Yes Comment: Replete as needed. Discharge Disposition: Home Discharge Condition: Improved Cognitive Discharge Status: Unimpaired Fuctional Discharge Status: Independent Physician Follow up/Referrals: None,No Provider [Family Provider] - Hospital to call w/ appt. Home Medications / New Prescriptions: New Sertraline HCl [Zoloft] 25 mg PO DAILY #30 tablet Continue Buspirone HCl [Buspar] 10 mg PO TID Discontinued Duloxetine HCl [Cymbalta] 60 mg PO DAILY O2 Device: Room Air Additional Instructions: CHANGE DIET. REMOVE MUCH SUGAR POSSIBLE. INCREASE PROTEIN IN DIET, LOW CARBOHYDRATE Diet at Discharge: As Tolerated, Regular Activity: No Restrictions Call Office For: Worsening Symptoms - DC Summary Notes Hospital Course Note:: Discharge summary on patient named FELIPE JONES admitted to [facility] on 09/03/16 by Kaitlin Kwan MD. Date of discharge is []. Ms Jones is a pleasant 51-year-old white female with a history of depression and anxiety who presented with hypoglycemia. She had several recent traumatic events in her family with several deaths of close family members including a child, a brother, and her father. She unfortunately was also recently . She was started on Cymbalta and BuSpar for this. In the past she had had problems with hypoglycemia on Cymbalta. She does not have a history of diabetes and is on no other medications and presented with multiple hypoglycemic episodes and blood sugars in the 20 and 30 range. She was admitted to the hospital and required continuous D10 infusion. We held the Cymbalta but continue the BuSpar. Blood sugar slowly stabilized. Two days ago we discontinued the D10 infusion. Blood sugars have remained between 69 and 110 for more than 48 hours. She has been feeling well with no other complaints. She has tolerated other SSRIs without hypoglycemia and we have gone ahead and started her on Zoloft. Because of concern for possible insulinoma she did undergo further evaluation including insulin levels and C- peptide levels both of which were elevated. She then underwent a pancreatic protocol CT scan of her abdomen and pelvis that showed no acute abnormalities. As she appear stable and it appears that this is related to Cymbalta she will be discharged home. She will continue to monitor her blood sugars closely post discharge and will follow up with her primary physician in the next several days. She is to call or return with any problems. Total Time: 45 minutes - Physical Exam Vital Signs: Last Vital Signs Temp 98.5 F 09/10/16 04:14 Pulse 67 09/10/16 04:14 Resp 18 09/10/16 04:14 BP 98/62 L 09/10/16 04:14 Pulse Ox 97 09/10/16 04:14 Oxygen Pulse Oxygen Saturation 97 O2 Device Room Air Oxygen Flow Rate Fraction of Inspired Oxygen ( FIO2) Constitutional: No apparent distress, Alert, Agitated, Well nourished, Well appearing Oriented to: Time, Person, Place - HEENT Head: Normal. negative: Deformity Eye: negative: Edema, Pale Conjunctiva, Scleral Icterus - Respiratory/Cardiovascular Respiratory: Normal - CTA, Diminished - GI Auscultation: Normal Palpation: Normal. negative: Enlarged liver, Enlarged spleen, Fluid Wave Tenderness: Non tender Ugarte's Sign: Negative Rectal Exam: Deferred - Musculoskeletal Back: negative: Ecchymosis, Laceration, CVA Tenderness Extremities: negative: Clubbing, Cyanosis, Edema - Integumentary Lymphatics: Normal. negative: Adenopathy, Inguinal Tenderness - Neurologic Memory Impaired: Normal Motor Function: Normal Cranial Nerve: Normal Cerebellar: Normal Mood Description: Anxious, Flat, Other (poor eye contact) Thought: Coherent Perception: Normal
[2016-09-10] MEDS: PEG-ELECTROLYTE 17 GM PACK PO SCH (11:37)
== END 2016-09-10 12:32 | disposition home or self-care (01) | DRG 645 ==
LOC: ED 07:59 → MPS3 12:08 → ICU 09-04 16:06 → MPS3 09-09 09:02
PROVIDERS: ADMIT Family Medicine; ATTEND Hospitalist
PROC: 05HM33Z Insertion of Infusion Device into Right Internal Jugular Vein, Percutaneous Approach (ICD-10-PCS; principal; 2016-09-06)
PROC: B543ZZA Ultrasonography of Right Jugular Veins, Guidance (ICD-10-PCS; 2016-09-06)
DX: E16.0 Drug-induced hypoglycemia without coma (principal); F32.9 Major depressive disorder, single episode, unspecified; F41.9 Anxiety disorder, unspecified; I87.8 Other specified disorders of veins; E86.0 Dehydration; E87.6 Hypokalemia; T43.215A Adverse effect of selective serotonin and norepinephrine reuptake inhibitors, initial encounter; F17.210 Nicotine dependence, cigarettes, uncomplicated; Z23 Encounter for immunization; Z79.899 Other long term (current) drug therapy; Z79.84 Long term (current) use of oral hypoglycemic drugs
CPT/HCPCS: 36415; 71010; 74170; 80048; 80053; 80061; 80307; 81001; 82010; 82550; 82947; 82962; 83002; 83036; 83525; 84206; 84305; 84443; 84484; 84681; 85025; 85027; 85610; 86140; 87040; 87086; 90471; 90656; 90732; 93005; 96361; 96374; 96375; 96376; 99284; A9698; J1642; J2405; J3490; J7060